=== PATIENT | female | born 1960 | race Caucasian/White ===

== ENCOUNTER → 2016-09-08 05:14 | Day surgery (SDC) | payer OTHER ==
[2016-09-07 11:59] LABS: HEMATOCRIT 39.6 % (36.0-48.0); HEMOGLOBIN 13.6 g/dL (12-16); MCH 32.2 pg (26.0-34.0); MCHC 34.3 g/dL (31.0-37.0); MCV 93.6 fL (80.0-100.0); MEAN PLATELET VOLUME 8.6 fL (7.4-10.4); RBC 4.23 10x6/uL (4.00-5.40); RDW 12.2 % (11.5-14.5); WBC 6.7 10x3/uL (4.8-10.8)
[~2016-09-08] VITALS: Ht 157.5 cm; Wt 74.8 kg
[~2016-09-08 05:14] MED LIST: BENICAR40 MG PO; CATAPRES0.1 MG PO; CELEXA20 MG PO; DESERYL100 MG PO; HCTZ25 MG PO; HYDROCODONE-APA1 TAB PO; MIRALAX17 GM PO; OMEPRAZOLE20 M1 PO; TENORMIN25 MG PO; XANAX0.5 MG PO
[2016-09-08 06:15] VITALS: BP 142/90; Ht 157.5 cm; Wt 74.8 kg
--- NOTE | 2016-09-08 08:32 | NUR ---
0830 ATTEMPTED TO UPDATE FAMILY NO ANSWER IN PATIENTS ROOM 8938
--- NOTE | 2016-09-08 11:40 | NUR ---
1045 ASSISTED PT TO THE BATHROOM SUING WALKER, PT MAINTAINED NWB STATUS TO LEFT FOOT. DENIES ANY C/O. DRESSING IS CDI. 1130 CRUTCHES HAVE BEEN DELIVERED TO PT. PT STATES SHE DOES NOT NEED A PHYSICAL THERAPY CONSULT TO USE THEM. REVIEWED DC INSTRUCTIONS WITH PATIENT AND WHO VERBALIZE UNDERSTANDING. 1140 PT ESCORTED TO PRIVATE AUTO VIA WC BY STAFF WITH DRIVING HER HOME.
--- NOTE | 2016-10-20 08:50 | OP ---
PATIENT NAME: CLEM SUTTON MEDICAL RECORD: [id number] :58 LOCATION:D.OPS ADMISSION DATE: SURGEON: CYNTHIA ARCOS DPM DATE OF OPERATION: 09/08/2016 PREOPERATIVE DIAGNOSES: 1. Instability, left first met cuneiform joint. 2. Hallux abductovalgus, left foot. 3. Plantar plate rupture, left second metatarsophalangeal joint. POSTOPERATIVE DIAGNOSES: 1. Instability, left first met cuneiform joint. 2. Hallux abductovalgus, left foot. 3. Plantar plate rupture, left second metatarsophalangeal joint. PROCEDURES: 1. Welch bunionectomy, left foot. 2. First met cuneiform joint fusion, left foot. 3. Yi osteotomy, left second metatarsal. 4. Plantar plate repair, left second MPJ. ANESTHESIA: Preoperative popliteal block per the anesthesia department as well as infiltration of 4 cc of Marcaine with lidocaine on the medial aspect of the anterior left ankle at the coursing of the saphenous nerve. HEMOSTASIS: Left thigh tourniquet at 350 mmHg. PREOPERATIVE DETAILS: The patient was taken to the OR, placed on the operating table in supine position. This was followed by induction of general anesthesia. The left extremity was then prepped and draped in the usual aseptic technique followed by infiltration of local anesthetic in the anterior medial ankle. The left extremity was then exsanguinated and the tourniquet was inflated. PROCEDURE NUMBER 1: Welch bunionectomy, left foot. A 15-blade was used to create an incision from the medial cuneiform dorsally to the middle of the proximal phalanx of the hallux. The incision was deepened down through subcutaneous tissue being sure to avoid all vital structures. Dissection was carried down to the first MPJ where an inverted L capsulotomy was performed. The medial capsular flap was reflected and the head of the first metatarsal was delivered. A sagittal saw was used to resect the medial eminence. Attention was then directed to the first interspace where a lateral release was performed. Good clinical reduction of the lateral contracture was verified. PROCEDURE NUMBER 2: First met cuneiform joint fusion. The incision as described in #1 was carried down to the periosteum and the first met cuneiform joint was visualized. At this time, a sagittal saw was used to resect the joint followed by temporary fixation and application of a 5-hole plate, 1 hole being through the plate as a compression screw. C-arm was used to verify good placement of the hardware as well as alignment of the first metatarsal. Excellent rigid internal fixation was noted. The wound was flushed. The deep tissue and periosteum and joint capsule were closed with 2-0 Vicryl, the subcutaneous tissue with 4-0 Rapide and the skin was closed with 4-0 Rapide in a subcuticular technique. PROCEDURE NUMBER 3: Yi osteotomy, left second metatarsal. Incision was made OPERATIVE REPORT [id number] CLEM SUTTON over the dorsal aspect of the second metatarsal on to the middle of the proximal phalanx of the second digit. The incision was deepened down through subcutaneous tissue to the extensor longus tendon, which was transected in a Z fashion giving access to the second MPJ and a linear capsular incision was then made and the capsule was freed from the dorsal aspect of the second metatarsal. A sagittal saw was used to create a Yi osteotomy dorsal distal to plantar proximal. The capital fragment was then pushed proximally and temporarily fixated with a K-wire. PROCEDURE NUMBER 4: Plantar plate repair, left second MPJ. At this time, 2 K-wires were placed, one was in the second metatarsal shaft and one was in the proximal phalanx of the second digit. Wire retractors placed over the wires and then the joint was distracted. Upon initial visualization, there was a significant disruption of the plantar plate from medial to lateral. There was also a tear medially, 1 was oblique, 1 was transverse. At this time, it was deemed necessary to incorporate the flexor tendon in the repair. The remaining aspects of the plantar plate were freed from the base of the proximal phalanx and utilizing FiberWire, the flexor tendon was sutured as well as the medial plantar plate and the lateral plantar plate, the lateral plantar plate being very scarred and much scar tissue. Once this was accomplished, 2 small drill holes were made in the base of the proximal phalanx of the second digit and the FiberWire was passed up through the drill holes on the phalanx. At this time, the wire retractors were removed. The Yi osteotomy was fixated with 2 popoff screws with excellent fixation and alignment and with the second digit held in a plantar flexed and slightly laterally deviated position, the FiberWire was passed up through the proximal phalanx of the second digit, was then secured with surgeon's knots. Following the repair, the second digit was in a very stable and rectus position. The wound was flushed. The capsule was then repaired with 2-0 Vicryl, the extensor longus tendon with 4-0 Rapide and the subcutaneous tissue was closed with 4-0 Rapide. Skin was then closed with 4-0 Rapide in a subcuticular technique followed by Dermabond to this as well as a wound over the first ray. Adaptic, 4 x 4 and Conform were used to dress the wound followed by application of a Hernandez compression dressing, tourniquet was deflated. POSTOPERATIVE DETAILS: The patient tolerated the procedure well and left the OR with vital signs stable and vascular status at preop levels. The patient was transported to recovery per anesthesia in stable condition. TRANSINT:[id number] Voice Confirmation ID: [id number] DOCUMENT ID: [id number] CYNTHIA ARCOS DPM at 0850 CC: [id number] DICTATION DATE: 09/08/16 0946 TELEPHONE DIRECTORY DISTRIBUTOR DRIVER: 09/08/16 1100 [facility] 09/08/16 [facility] [address] [place] [address]
== END | disposition home or self-care (01) ==
LOC: D.OPS 05:14 → D.PAN 07:30 → D.OPS 07:30
PROVIDERS: Anesthesiology
DX: M25.375 Other instability, left foot (principal); M20.12 Hallux valgus (acquired), left foot; S93.525A Sprain of metatarsophalangeal joint of left lesser toe(s), initial encounter